=== PATIENT | male | born 1970 | race Caucasian/White ===

== ENCOUNTER → 2016-08-22 | Outpatient (CLI) | payer OTHER | LOC: RAD 13:16 | DX: R05 Cough (principal) | CPT/HCPCS: 71020 ==

== ENCOUNTER 2020-11-12 17:23 | Emergency (ER) | payer OTHER ==
[~2020-11-12] VITALS: Ht 193 cm; Wt 149.7 kg
== END 2020-11-12 21:45 | disposition home or self-care (01) ==
LOC: ER1 17:23 → EDBD 17:23 → ER1 17:23
DX: Z23 Encounter for immunization (principal); U07.1 COVID-19; I10 Essential (primary) hypertension; E78.5 Hyperlipidemia, unspecified; Z88.2 Allergy status to sulfonamides; F17.210 Nicotine dependence, cigarettes, uncomplicated
CPT/HCPCS: 99283; M0243